=== PATIENT | female | born 1950 | race Caucasian/White ===

== ENCOUNTER 2017-09-15 11:03 | Emergency (ER) | payer MEDICARE, MEDICAID ==
--- NOTE | 2017-09-15 11:43 | RAD ---
PORTABLE CHEST: Date: 09/15/17 HISTORY: Syncopal episode while outside smoking. COMPARISON: None. FINDINGS: Heart size within normal limits. There are atherosclerotic changes of the aorta. Right upper lobe par enchymal lung changes have the appearance more suggestive of a scar, although it could represent an i nfiltrate. There is a nodular density in the left upper lobe which appears fairly well circumscribed, but not definitely calcified. IMPRESSION: Circumscribed faint nodular density in the left upper lobe measuring 1.6 cm in size, possibly a pulmo nary nodule but could be related to some soft tissue density. In addition, there is right upper lobe parenchymal changes which have appearance more suggestive of scar. Correlation with any old films wou ld be very helpful. If no old films are available, CT on a nonemergent basis may be a consideration, or, at least, a follow-up chest x-ray. POS: [facility]
[2017-09-15 11:48] LABS: Bilirubin Negative (Negative); Blood, Urine Trace (Negative); Glucose, Urine (Dipstick) Negative (Negative); Leukocyte Negative (Negative); Nitrite Negative (Negative); Protein, Urine (Dipstick) Negative (Neg-Trace); Urobilinogen 0.2 mg/dL (0.2-1.0)
[2017-09-15 11:49] LABS: Clarity Clear (Clear)
[2017-09-15 11:56] LABS: Pathc Cast-AUWi Flag 0.29 (0-2.49)
[2017-09-15 12:13] LABS: Bacteria/HPF None Seen HPF (None Seen); Hyaline Casts/LPF NONE SEEN LPF (0-3 Hyaline); RBC/HPF 0-3 HPF (0-3); Squamous Epithelial 0-3 HPF (0-3); WBC/HPF 0-3 HPF (0-3)
--- NOTE | 2017-09-15 12:14 | RAD ---
CERVICAL SPINE SERIES 3 VIEWS: HISTORY: Neck pain status post syncopal episode. FINDINGS: The vertebral bodies are normal in height. There is anterolisthesis of C4 on C5 of approximately 3-4 mm and a very minimal anterolisthesis of C5 on C6 with minimal disk narrowing at this level. Degene rative facet changes are present. Carotid bulb calcifications are seen on the right. IMPRESSION: 1. Moderate arthritic changes of the spine. 2. Right-side carotid bulb calcifications. POS: [facility]
--- NOTE | 2017-09-15 12:19 | CT ---
CT OF BRAIN PERFORMED WITHOUT CONTRAST ENHANCEMENT: Date: 09/15/17 HISTORY: Syncopal episode. FINDINGS: The ventricular and cisternal system shows fairly age-appropriate change. Virchow-Alcon space is seen on the left. There are no signs of intracerebral hemorrhage or extra-axial fluid collections. The ma stoid air cells and visualized sinuses are clear. IMPRESSION: No acute intracranial abnormalities. POS: [facility]
[2017-09-15 12:26] LABS: #Basophils 0.1 thou/uL (0.0-0.2); #Lymphocytes 1.8 thou/uL (1.20-3.40); #Monocytes 1.1 thou/uL (0.11-0.59); %Basophils 0.7 % (0.0-1.0); %Eosinophils 0.3 % (0.0-10.0); %Lymphocytes 15.2 % (21.0-51.0); %Monocytes 9.4 % (0.0-10.0); %Neutrophils 74.4 % (42.0-75.0); Hemoglobin 12.9 g/dL (12.0-16.0); Mean Corpuscular HGB CONC 33.1 g/dL (32.0-36.0); Mean Corpuscular Hemoglobin 33.2 pg (27.0-31.0); Mean Platelet Volume 7.1 fL (7.4-10.4); Platelet Count 263 thou/uL (130-400); RBC Distribution Width 11.3 % (11.5-14.5); White Blood Cell (WBC) Count 12.1 thou/uL (4.8-10.8)
[2017-09-15 12:47] LABS: Amphetamine Not Detected (NotDetected); Barbiturates Screen Not Detected (NotDetected); Benzodiazepine Screen Not Detected (NotDetected); Cocaine Metabolite Screen Not Detected (NotDetected); Medtox Control Line Valid? VALID (VALID); Medtox Reader # READER 4; Methadone Not Detected (NotDetected); Methamphetamine Not Detected (NotDetected); Opiate Screen Not Detected (NotDetected); Oxycodone Screen Not Detected (NotDetected); Phencyclidine (PCP) Not Detected (NotDetected); THC/Cannabinoid Screen Not Detected (NotDetected); Tricyclic Screen Not Detected (NotDetected)
[2017-09-15 12:50] LABS: CKMB 2.2 ng/mL (0-6.6); Troponin I Less than 0.010 ng/mL (< 0.028)
[2017-09-15 12:55] LABS: ALT (SGPT) 9 U/L (8-55); AST (SGOT) 13 U/L (5-34); Acetaminophen Less than 6.0 mcg/mL (10.0-30.0); Albumin 3.8 g/dL (3.4-4.8); Alcohol Less than 10 mg/dL (Less than 10); Alkaline Phosphatase 76 U/L (40-150); Anion Gap 9 mmol/L (10-20); BUN (Urea Nitrogen) 7 mg/dL (9.8-20.1); Bilirubin, Total 0.9 mg/dL (0.2-1.2); Calc. Creatinine Clearance 0 mL/min (70-130); Calcium 8.6 mg/dL (7.8-10.44); Carbon Dioxide 24 mmol/L (23-31); Chloride 109 mmol/L (98-107); Estimated GFR-MDRD Greater than 90; Globulin 2.4 g/dL (2.4-3.5); Glucose 100 mg/dL (80-115); Potassium 4.2 mmol/L (3.5-5.1); Protein, Total 6.2 g/dL (6.0-8.3); Salicylate Less than 8.0 mg/dL (15.0-30.0); Sodium 138 mmol/L (136-145)
== END 2017-09-15 15:13 | disposition home or self-care (01) ==
LOC: ERS 11:03
DX: R55 Syncope and collapse (principal); E78.5 Hyperlipidemia, unspecified; K21.9 Gastro-esophageal reflux disease without esophagitis; F31.9 Bipolar disorder, unspecified; F17.210 Nicotine dependence, cigarettes, uncomplicated; Z71.6 Tobacco abuse counseling; Z86.73 Personal history of transient ischemic attack (TIA), and cerebral infarction without residual deficits
CPT/HCPCS: 36415; 70450; 71045; 72040; 80306; 80307; 81003; 81015; 82553; 84484; 85025; 93005; 96360; 96361; 99406